=== PATIENT | male | born 1945 | race Caucasian/White ===

== ENCOUNTER → 2016-10-31 | Outpatient (CLI) | payer OTHER | LOC: BHFA 09:00 | PROVIDERS: ATTEND Internal Medicine Interventional Cardiology | DX: Z01.810 Encounter for preprocedural cardiovascular examination (principal); R94.31 Abnormal electrocardiogram [ECG] [EKG] | CPT/HCPCS: 78452; 93017; A9500; J2785 ==

== ENCOUNTER → 2017-11-20 | Outpatient (CLI) | payer OTHER | LOC: FIMAGING 07:48 | PROVIDERS: ATTEND Orthopaedic Surgery | DX: M16.11 Unilateral primary osteoarthritis, right hip (principal) ==

== ENCOUNTER 2017-11-30 06:10 | Inpatient (IN) | payer OTHER ==
[~2017-11-30 06:10] MED LIST: POVIDONE-IODINE 20 ML in SODIUM CL IRRIG SOLUTION 500 ML IRR ONE; ROPIVACAINE 0.2% 80 MG, EPINEPHrine 0.2 MG, KETOROLAC TROMETHAMINE 30 MG in SYRINGE 0 ML IU ONE; TRANEXAMIC ACID 1,000 MG in NS (SYRINGE) 50 ML IV ONE; ceFAZolin 3 GM in D5W 100 ML IV ONE
[2017-11-30] MEDS ORDERED: ACETAMINOPHEN 325 MG TAB PO ONE (06:21)
[2017-11-30] MEDS ORDERED: FAMOTIDINE 20 MG TAB PO ONE (06:21)
[2017-11-30] MEDS ORDERED: DEXAMETHASONE 4 MG/ML VIAL IVP ONE (06:21)
[2017-11-30] MEDS ORDERED: LR 1,000 ML IV ONE (06:22)
[2017-11-30] MEDS ORDERED: BUPIVACAINE/EPI 0.5% 30 ML SDV ONE (07:42)
[2017-11-30] MEDS ORDERED: BACITRACIN 50,000 UNITS/10 ML SYR IRR ONE (07:43)
[2017-11-30] MEDS ORDERED: POLYMYXIN B SULFATE 500,000 UNIT/10 ML SYR IRR ONE (07:43)
[2017-11-30] MEDS ORDERED: MIDAZOLAM 2 MG/2 ML VIAL IVP ONE (08:05)
--- NOTE | 2017-11-30 08:05 | PDANEPAE ---
ANE History of Present Illness here for ROXANNE ANE Past Medical History - Cardiovascular History Hx Hypertension: No Hx Arrhythmias: No Hx Chest Pain: No Hx Coronary Artery / Peripheral Vascular Disease: No Hx CHF / Valvular Disease: No Hx Palpitations: No Cardiovascular History Comment: ABNORMAL EKG IN PAST - Pulmonary History Hx COPD: No Hx Asthma/Reactive Airway Disease: No Hx Recent Upper Respiratory Infection: No Hx Oxygen in Use at Home: No Hx Sleep Apnea: No Sleep Apnea Screening Result - Last Documented: Positive Pulmonary History Comment: POS MADIE - NO CPAP - Neurologic History Hx Cerebrovascular Accident: No Hx Seizures: No Hx Dementia: No Neurologic History Comment: OCCAS MIGRAINES - Endocrine History Hx Diabetes: Yes Hypothyroid: No Hyperthyroid: No Endocrine History Comment: PREDIAB - METFORMIN - Renal History Hx Renal Disorders: Yes Renal History Comment: KIDNEY STONES IN PAST SEVERAL TIMES - Liver History Hx Hepatic Disorders: No - Neurological & Psychiatric Hx Hx Neurological and Psychiatric Disorders: No - Cancer History Hx Cancer: No - Congenital Disorder History Hx Congenital Disorders: No - GI History GERD: no Hx Gastrointestinal Disorders: Yes Gastrointestinal History Comment: INDIGESTION - Other Health History Other Health History: NEG - Chronic Pain History Chronic Pain: Yes (BACK PAIN, HIPS) - Surgical History Prior Surgeries: SPINAL FUSION LUMBAR. NECK DISC SURGERY. SINUS SURG. CATARACTS. CARPAL TUNNEL R. KIDNEY STONES - MULTI. TONSILLECTOMY ANE Review of Systems Review of systems is: negative Review of Systems: - Exercise capacity Exercise capacity: >=4 METS METS (RN): 4 METS ANE Patient History - Allergies Allergies/Adverse Reactions: No Known Allergies Allergy (Unverified 11/02/17 11:14) - Home Medications Home medications: home medication list seen and reviewed Home Medications: Acetaminophen [Tylenol 325mg (*)] 325 mg PO Q6 PRN 11/02/17 [Last Taken 11/29/17 ] Atorvastatin Calcium [Lipitor 20 mg (*)] 20 mg PO HS 11/02/17 [Last Taken ] Cholecalciferol Vit D3 [Vitamin D3 2000 units tab (OTC)] 4,000 units PO DAILY [Last Taken 11/23/17] Dutasteride [Avodart 0.5 MG (*)] 0.5 mg PO HS 11/02/17 [Last Taken 11/28/17] Gabapentin [Neurontin 300 MG (*)] 300 mg PO TID 11/02/17 [Last Taken 11/28/17] Herbals/Supplements -Info Only 1 ea PO DAILY 11/02/17 [Last Taken 11/23/17] Latanoprost 0.005% [Xalatan 0.005% (*)] 1 drops EACHEYE HS 11/02/17 [Last Taken 11/30/17] Omeprazole [Prilosec 20 mg] 40 mg PO Q2D 11/02/17 [Last Taken 11/28/17] Tamsulosin HCl [Flomax 0.4 MG (*)] 0.4 mg PO HS 11/02/17 [Last Taken 11/28/17] Timolol 0.5% [TIMOPTIC 0.5% (*)] 1 drops EACHEYE BID 11/02/17 [Last Taken ] metFORMIN HCL [Glucophage 850 mg (*)] 850 mg PO BIDMEAL 11/02/17 [Last Taken ] [place] 3/Dha/Epa/Other Om3/D3 BID 11/30/17 [Last Taken 11/28/17] - NPO status NPO Status: no food or drink >8 hours NPO Since - Liquids (Date): 11/29/17 NPO Since - Liquids (Time): 19:30 NPO Since - Solids (Date): 11/29/17 NPO Since - Solids (Time): 19:30 - Smoking Hx Smoking Status: Former smoker - Family Anes Hx Family Hx Anesthesia Complications: NEG ANE Labs/Vital Signs - Vital Signs Vital Signs: reviewed preoperatively; see RN documention for details Blood Pressure: 150/83 Heart Rate: 73 Respiratory Rate: 16 O2 Sat (%): 93 Height: 177.8 cm Weight: 117.934 kg ANE Physical Exam - Airway Neck exam: FROM Mallampati Score: Class 1 - Pulmonary Pulmonary: no respiratory distress - Cardiovascular Cardiovascular: regular rate and rhythym - ASA Status ASA Status: II, III ANE Anesthesia Plan Anesthesia Plan: general endotracheal anesthesia
[2017-11-30] MEDS ORDERED: MIDAZOLAM 2 MG/2 ML VIAL ONE (08:09)
[2017-11-30] MEDS ORDERED: fentaNYL 100 MCG/2 ML INJ ONE ×2 (08:09→12:10)
[2017-11-30] MEDS ORDERED: PROPOFOL/EMULSION 500 MG/50 ML BOTTLE IV ONE (08:14)
--- NOTE | 2017-11-30 08:16 | PDHPUP ---
History & Physical Update H&P update statement: This history and physical update is based on an assessment of the patient which was completed after admission or registration (within 24 hours), but prior to the surgery/procedure. H&P update: H&P reviewed & patient examined, no change in patient's condition since H&P completed
[2017-11-30] MEDS ORDERED: HYDROmorphONE/DILAUDID 2 MG/ML INJ ONE (08:59)
[2017-11-30] MEDS ORDERED: LABETALOL HCL 5 MG/ML 20 ML MDV IVP PRN (09:52)
[2017-11-30] MEDS ORDERED: PROMETHAZINE HCL 25 MG/ML INJ IVP PRN ×2 (09:52→12:09)
[2017-11-30] MEDS ORDERED: LR 500 ML IV PRN (09:52)
[2017-11-30] MEDS ORDERED: DEXAMETHASONE 4 MG/ML VIAL IVP PRN (09:52)
[2017-11-30] MEDS ORDERED: ONDANSETRON 4 MG/2 ML VIAL IVP PRN ×2 (09:52→12:09)
[2017-11-30] MEDS ORDERED: ALBUTEROL 3 ML DEYVIAL IH PRN (09:52)
[2017-11-30] MEDS ORDERED: NALOXONE HCL 0.4 MG/ML INJ IVP PRN (09:52)
[2017-11-30] MEDS ORDERED: SUGAMMADEX SODIUM 200 MG/2 ML VIAL IVP ONE ×2 (11:26→11:43)
[2017-11-30] MEDS ORDERED: diphenhydrAMINE 25 MG CAP PO PRN (12:09)
[2017-11-30] MEDS ORDERED: MAGNESIUM HYDROXIDE 30 ML UDCUP PO PRN (12:09)
[2017-11-30] MEDS ORDERED: METOCLOPRAMIDE 10 MG/2 ML VIAL IVP PRN (12:09)
[2017-11-30] MEDS ORDERED: DIPHENOXYLATE/ATROPINE LOMOTIL 1 TAB PO PRN (12:09)
[2017-11-30] MEDS ORDERED: LACTULOSE 20 GM/30 ML UDCUP PO PRN (12:09)
[2017-11-30] MEDS ORDERED: PROMETHAZINE HCL 25 MG SUPPR PR PRN (12:09)
[2017-11-30] MEDS ORDERED: BISACODYL 10 MG SUPP PR PRN (12:09)
[2017-11-30] MEDS ORDERED: ONDANSETRON DISINTEGRATING 4 MG TAB PO PRN (12:09)
[2017-11-30] MEDS ORDERED: TEMAZEPAM 15 MG CAP PO PRN (12:09)
[2017-11-30] MEDS ORDERED: HYDROmorphONE/DILAUDID 1 MG/ML INJ ONE (12:10)
[2017-11-30] MEDS: HYDROmorphONE/DILAUDID 1 MG/ML INJ IVP PRN ×3 (12:10→12:36)
[2017-11-30] MEDS: fentaNYL 100 MCG/2 ML INJ IVP PRN ×2 (12:10→12:21)
--- NOTE | 2017-11-30 12:16 | POSTOPPROG ---
Post Op Note Date of Operation: 11/30/17 Surgeon: Salas Ervin Support Staff: Noel Kat Anesthesia: GET(General Endotracheal) Pre-op Diagnosis: Right hip OA Post-op Diagnosis: same Procedure: Right posterior ROXANNE with Luis Inf/Abcess present in the surg proc area at time of surgery?: No EBL: 100-500 Complications: none Drains: Hemovac
[2017-11-30] MEDS ORDERED: LR 1,000 ML IV SCH (12:30)
--- NOTE | 2017-11-30 12:38 | POSTANESTH ---
Post Anesthetic Evaluation Cardiovascular Status: Normal, Stable Respiratory Status: Normal, Stable Level of Consciousness/Mental Status: Can Participate in Eval Pain Control: Adequate, Prn Tx Ordered Nausea/Vomiting Control: Adequate, Prn Tx Ordered Complications Possibly Related to Anesthesia: None Noted
[2017-11-30] MEDS: CYCLOBENZAPRINE 10 MG TAB PO PRN (13:20)
[2017-11-30] MEDS: oxyCODONE IR 5 MG TAB PO PRN ×2 (13:20→16:18)
[2017-11-30] MEDS: POLYETHYLENE GLYCOL 3350 17 GM PKT PO PRN (13:20)
[2017-11-30] MEDS: ceFAZolin 2 GM/SWFI 2 GM/20 ML SYR IVP SCH ×2 (13:22→23:04)
[2017-11-30] MEDS ORDERED: ceFAZolin 2 GM/DEXTROSE 100 ML IV SCH (14:00)
[2017-11-30] MEDS: GABAPENTIN 300 MG CAP PO SCH ×2 (14:14→23:03)
[2017-11-30] MEDS: ACETAMINOPHEN 325 MG TAB PO SCH ×3 (14:14→23:03)
[2017-11-30] MEDS ORDERED: GABAPENTIN 300 MG CAP PO SCH (16:00)
[2017-11-30] MEDS: metFORMIN HCL 850 MG TAB PO SCH (17:28)
[2017-11-30] MEDS ORDERED: ACETAMINOPHEN 325 MG TAB PO SCH (18:00)
[2017-11-30] MEDS: TIMOLOL 0.25% 5 ML OPHT.BTL EACHEYE SCH (20:24)
[2017-11-30] MEDS: SENNOSIDES/DOCUSATE SODIUM TAB PO SCH (20:25)
[2017-11-30] MEDS: FAMOTIDINE 20 MG TAB PO SCH (20:25)
[2017-11-30] MEDS ORDERED: ATORVASTATIN CALCIUM 20 MG TAB PO SCH (21:00)
[2017-11-30] MEDS ORDERED: LATANOPROST 0.005% 2.5 ML OPHT DROPS EACHEYE SCH (21:00)
[2017-11-30] MEDS ORDERED: TIMOLOL 0.5% 15 ML OPHT.BTL EACHEYE SCH (21:00)
[2017-11-30] MEDS ORDERED: TAMSULOSIN HCL 0.4 MG CAP PO SCH (21:00)
[2017-11-30] MEDS ORDERED: DUTASTERIDE 0.5 MG CAP PO SCH (21:00)
--- NOTE | 2017-11-30 23:16 | GOP ---
[f rep st] OPERATIVE REPORT DATE OF OPERATION: 11/30/2017 SURGEON: Salas Ervin MD NECK BAND OPERATOR: Александр Kat, CSFA, LSA. Lodging Manager was required due to the complexity of the case and the patient's condition for positioning, prepping, draping, retraction and closure. ANESTHESIA: General. PREOPERATIVE DIAGNOSIS: Right hip osteoarthritis. POSTOPERATIVE DIAGNOSIS: Right hip osteoarthritis. PROCEDURE PERFORMED: Right total hip replacement, posterior approach, with Luis robotic guidance. The case was complicated due to the patient's history of obesity. Extra staff, surgical instruments, and time were required for the patient; patient's transfer , positioning, draping, and surgical procedure itself. FINDINGS: SPECIMENS: None. ESTIMATED BLOOD LOSS: 300 cc. INDICATIONS: Hip osteoarthritis. After discussion of all available approaches , the patient elected a Luis robotic-assisted hip replacement through a posterior approach. The patient verbalized understanding of the risks and benefits of the procedure and signed informed consent prior to the procedure. DESCRIPTION OF PROCEDURE: The patient was seen in the holding area. Operative site was signed. Patient was then taken to the operating room. After smooth induction of general anesthesia, he was placed in the lateral decubitus position with the affected hip facing up with pegboard and axillary roll. The affected hip was prepped, draped in usual sterile fashion. Operative site was confirmed by signature. Operative time-out performed. Allergies were reviewed and antibiotics and TXA administered. Through a percutaneous approach over the iliac crest, 3 pins were placed in the ilium between the inner and outer tables. Pelvis array was attached and registered. Longitudinal incision was made centered over the posterior third of the greater trochanter. This was carried through the subcutaneous tissue to identify the fascia emma which was incised in line with the incision and the gluteus keith was bluntly split. The trochanteric bursa was taken down using Bovie. The short external rotators were put on stretch and the short external rotators and trapezoidal capsulotomy were taken in layers from their insertion on the femur and tagged with #2 Ethibond and FiberWire sutures. The quadratus femoris was partially released. The hip was dislocated. The femoral array and checkpoint were attached to the greater trochanter and the femur was registered. With guidance of the Luis robot, the templated length neck cut was made. The head was excised. The acetabulum was exposed in standard fashion. The labrum was sharply excised. The ligamentum teres and acetabular fossa tissue were excised using Bovie. The transverse acetabular ligament was also partially excised. The pelvic checkpoint was attached to the acetabulum and was registered. Using [employer] robotic arm, sequential reaming performed based on templated positioning. The appropriate size implant was then impacted into place with the robotic arm to guide version, inclination, and seen to have an excellent secure fit. The hole cover was screwed into place. The cup was irrigated and dried and the liner was locked into place. Femur was then exposed in standard fashion. Excess soft tissue was removed from the piriformis fossa using the Bovie and excess neck cut was removed using the box osteotome, sequential broaching was performed up to the desired size broach which had good fit and fill. The trial neck and stem array were attached and the anteversion, length, and offset were calculated with the Luis system and seen to be as planned. The trial femoral components were then removed. The femoral broach was reinserted. The trial neck and head were attached. The hip was relocated and the combined version, length and offset were again calculated using the [employer] robot and again seen to be as planned. The hip was then taken through range of motion, seen to be stable with flexion, internal rotation, adduction, as well as extension and external rotation. The trial component was removed from the femur and the stem implant was impacted into place. The trunnion was cleaned and dried and the head was impacted onto the trunnion. The wound was copiously irrigated with sterile solution using the pulse lavage including the cup, and the hip was then relocated and once again taken through range of motion and seen to be stable in all the above motions. The array pins and screws and checkpoints were removed. The capsule and external rotators were repaired through 2 drill holes in the greater trochanter. Soft tissues were infiltrated with a cocktail of Marcaine, epinephrine, and Toradol. A drain was placed exiting distally from beneath the fascia emma. The wound was then closed with #2 PDS Quill suture in the fascia emma, 0 PDS Quill suture in the deep subcutaneous fat, and 3-0 Versalok suture in the dermis. Dermabond and Steri-Strips were applied to the hip as was a silver dressing. The hip was placed in an abduction pillow. Patient was safely awakened, extubated, taken to recovery room in stable condition. All critical portions of the procedure were performed by myself, Dr. Ervin. The operative note was created by myself and I was immediately available for emergency cross-coverage at all times. DRAINS: One Hemovac. COMPLICATIONS: None. IMPLANTS: 54 mm Tritanium hemispherical solid back [place] cup, 0 degree polyethylene insert, 36 mm Accolade-II 127-degree neck size 6 with a 36 mm +7.5 head. /[id number]/MODL MTDD
[2017-12-01] MEDS: CYCLOBENZAPRINE 10 MG TAB PO PRN (05:35)
[2017-12-01] MEDS: ACETAMINOPHEN 325 MG TAB PO SCH ×2 (05:35→12:53)
[2017-12-01] MEDS: FAMOTIDINE 20 MG TAB PO SCH (08:08)
[2017-12-01] MEDS: GABAPENTIN 300 MG CAP PO SCH (08:08)
[2017-12-01] MEDS: metFORMIN HCL 850 MG TAB PO SCH (08:08)
[2017-12-01] MEDS: SENNOSIDES/DOCUSATE SODIUM TAB PO SCH (08:08)
[2017-12-01] MEDS: POLYETHYLENE GLYCOL 3350 17 GM PKT PO PRN (08:09)
[2017-12-01] MEDS: oxyCODONE IR 5 MG TAB PO PRN (08:15)
[2017-12-01] MEDS: TIMOLOL 0.25% 5 ML OPHT.BTL EACHEYE SCH (08:17)
--- NOTE | 2017-12-01 08:50 | SOAPPROG ---
SOAP Progress Note Assessment/Plan: Assessment: Postoperative day 1 status post right posterior approach total hip arthroplasty with Luis robotic guidance Plan: Weight-bearing as tolerated with assistance, PT/OT Posterior hip precautions Incentive spirometry 10 times per hour Analgesics as needed Lovenox 40 mg daily for 30 days Disposition: Home with home health and PT when cleared by Physical therapy 12/01/17 08:46 Subjective: No acute events over night. Denies fevers chills nausea vomiting chest pain shortness of breath numbness or tingling. Pain and soreness with standing. Objective: Vital Signs Temp Pulse Resp BP Pulse Ox 36.5 C 86 16 124/75 H 95 12/01/17 08:00 12/01/17 08:00 12/01/17 08:00 12/01/17 08:00 12/01/17 08:00 Laboratory Results 12/01/17 04:20 11/30/17 12/01/17 12/02/17 05:59 05:59 05:59 Intake Total 2600 Output Total 640 Balance 1960 Alert and oriented x3 No acute distress Right hip incision clean dry intact no erythema, signs infection, small quarter- sized area of drainage at distal aspect of incision bandage borders intact Thigh and calf compartments soft compressible without pain Sensation intact to light touch from L4-S1 Motor intact EHL FHL tibialis anterior gastrocsoleus Palpable DP PT pulses - Time Spent With Patient Time Spent With Patient: 10 - Pending Discharge Pending Discharge Within 24 Hours: Yes Pending Discharge Date: 12/02/17 Pending Discharge Time: 11:00 ICD10 Worksheet Patient Problems: Problems Problem Status Onset Osteoarthritis of right hip Acute
[2017-12-01] MEDS ORDERED: ENOXAPARIN 40 MG/0.4 ML SYR SC SCH (09:00)
[2017-12-01] MEDS ORDERED: CHOLECALCIFEROL VIT D3 2,000 UNITS TAB/CAP PO SCH (09:00)
[2017-12-01 11:26] VITALS: BP 118/69; PULSE 84; RESP 15; TEMP 98.2; O2SAT 91
--- NOTE | 2017-12-01 11:45 | WOCRNPDOC ---
WOCRN Advanced Assessment Note - Skin Integrity Problem, Advanced Assess Gluteal Cleft Dressing Type: Open to Air Exudate Amount: None Exudate Characteristic(s): None Integumentary Issue Intervention: Lotion/Cream Applied (will have nursing apply clear zinc BID) Pat Wound Tissue: Blanching, Erythema, Intact Pat Wound Swelling: None Wound Bed Color: Red Wound Bed Constitution: Red/Export - Non Granular Tissue Site Measurement - Head-to-Toe Length X Width X Depth (cm): 3cmx0.1cmx0.1cm Skin Integrity Problem Comment: Narrow, linear partial-thickness tissue loss r/ t moisture, consistent w/ intertriginous dermatitis. Pat-wound skin is otherwise intact and blanching throughout. This superficial wound is r/t moisture, and would benefit from a barrier cream such as clear zinc. Will have nursing apply BID.
--- NOTE | 2017-12-01 12:08 | ASMTCMCOM ---
CM Note CM Note Notes: OT rec home, PT rec home/C. Pt set up w [facility] PT by colleen SIMS, [facility] Pt staying in [place] at [address] [place] [address]. CM to follow. Date Signed: 12/01/2017 12:07 PM Electronically Signed By:HOLLY Leary
--- NOTE | 2017-12-01 15:53 | ASMTCMCOM ---
CM Note CM Note Notes: Pt medically stable for d/c, called Dr. Ervin office to get [facility] PT order ALFONSO Degroot reports they already sent order to Galindo Gibbons at [place]. Date Signed: 12/01/2017 03:52 PM Electronically Signed By:HOLLY Leary
--- NOTE | 2017-12-01 15:56 | ASDISCHSUM ---
Discharge Information Plan Status:Home with Home Health Medically Cleared to Leave: Discharge Date:12/01/2017 03:06 PM D/C Disposition:Home Health Service ADT D/C Disposition:Home, Routine, Self-Care Projected Discharge Date:12/01/2017 11:00 AM Transportation at D/C:Family Discharge Delay Reason: Follow-Up Date:12/01/2017 11:00 AM Discharge Slot: Final Diagnosis: Placement Information Referral Type:*Home Health Care Services Referral ID:[id number] Provider Name:[facility] Address 1:[address] Address 2: City:[place] Selection Factors: State:[place] Patient Contact Information Contact Name:ARMINDA Relationship: Address:[address] [address] Work Phone: City:[place] Alternate Phone: [facility]/Zip Code:[place] [address] Email: Financial Information Financial Class:Medicare Primary Plan Desc:MEDICARE INPATIENT Primary Plan Number:[id number] Secondary Plan Desc:SOLO PPO POS HMO Secondary Plan Number:[id number] Assessment Information [facility] CM Progress Note CM Note CM Note Notes: OT rec home, PT rec home/[facility]. Pt set up w [facility] PT by colleen SIMS, referral sent in [facility]. Pt staying in [place] at [address] [place] [address]. CM to follow. Date Signed: 12/01/2017 12:07 PM Electronically Signed By:HOLLY Leary BC CM Progress Note CM Note CM Note Notes: Pt medically stable for d/c, called Dr. Ervin office to get [facility] PT order ALFONSO Degroot reports they already sent order to Galindo Gibbons at [place]. Date Signed: 12/01/2017 03:52 PM Electronically Signed By:HOLLY Leary Intervention Information
--- NOTE | 2017-12-05 18:51 | GDS ---
[f rep st] DISCHARGE SUMMARY ADMITTING DIAGNOSIS: Right hip osteoarthritis. DISCHARGE DIAGNOSIS: Right hip osteoarthritis. PROCEDURE PERFORMED: Right posterior approach total hip arthroplasty. HOSPITAL COURSE: Patient was admitted on the above date and underwent the above procedure without co mplication. He tolerated the procedure well. Pain was well controlled postoperatively. His he was given antibiotics for perioperative infection prophylaxis and Lovenox for DVT prophylaxis. He worked well with physical therapy and was deemed safe for discharge home on postoperative day 1 with [facility]. DISCHARGE INSTRUCTIONS: Follow up in 2 weeks for his first postoperative evaluation. Continue on Lo venox for 30 days. DISCHARGE DISPOSITION: Home. CONDITION UPON DISCHARGE: Stable. /[id number]/MODL
== END 2017-12-01 15:06 | disposition home or self-care (01) | DRG 470 ==
LOC: F3N 06:10
PROVIDERS: ADMIT Orthopaedic Surgery; ATTEND Orthopaedic Surgery
DX: M16.11 Unilateral primary osteoarthritis, right hip (principal); Z87.891 Personal history of nicotine dependence; E66.9 Obesity, unspecified; Z68.37 Body mass index [BMI] 37.0-37.9, adult
CPT/HCPCS: 97116-GP; 97161-GP; 97165-GO; G8978-GP-CJ; G8979-GP-CI; G8980-GP-CI; G8987-GO-CI; G8988-GO-CI; G8989-GO-CI; J0171; J0690; J1100; J1170; J1650; J1885; J2250; J2270; J2405; J2704; J2795; J3010

== ENCOUNTER 2017-12-06 09:15 | Emergency (ER) | payer OTHER ==
[2017-12-06] MEDS ORDERED: ONDANSETRON 4 MG/2 ML VIAL IVP ONE (09:49)
--- NOTE | 2017-12-06 09:55 | EDPHY ---
General - History Smoking Status: Former smoker Time Seen by Provider: 12/06/17 09:49 Narrative: 11:19 I examined this patient as requested by Julius Hobbs. The patient's ecchymosis and hematoma are consistent with routine postoperative course especially as he is anticoagulated. No evidence of infection. X-ray normal. Plan for ultrasound to r/o clot or other acute processes as above. I concur with Julius Hobbs's interpretation and plan. (Pete Hurley) CHIEF COMPLAINT: Right leg pain, swelling and bruising HISTORY OF PRESENT ILLNESS: Patient complains of right leg pain, swelling and bruising. Symptoms started 2 days ago. They changed significantly yesterday. He is postoperative day 6 from a right hip total arthroplasty. This is a posterior approach. This was performed by Dr. Ervin. He was doing well postoperatively until 2 days ago. He notes increasing swelling and bruising the posterior aspect of leg at time. He also had a twisting injury yesterday at home. He has had increasing pain to the point that it is now significant despite his oral pain medications. The swelling is markedly different than the left leg. He has no numbness or tingling. No difficulty moving the ankle. No systemic illness but does feel that the leg has been warm to the touch. He has no chest pain or shortness of breath. No other associated complaints or modifying factors. He has been taking his Lovenox as prescribed but not yet taken today. REVIEW OF SYSTEMS: Ten systems reviewed and are negative unless otherwise noted in the HPI PCP: In [place] SPECIALISTS: Orthopedist Dr. Ervin PAST MEDICAL HISTORY: Osteoarthritis, BPH, glaucoma, reflux, type 2 diabetic, dyslipidemia PAST SURGICAL HISTORY: Low back surgery 2 years ago. Right hip ROXANNE November 30 2017 SOCIAL HISTORY: Nonsmoker. Lives independently with his spouse in [place]. Currently visiting his son here in [place] for surgery FAMILY HISTORY: Noncontributory EXAMINATION General Appearance: Alert, no distress Head: normocephalic, atraumatic Eyes: Pupils equal and round, no conjunctival pallor or injection ENT, Mouth: Mucous membranes moist Neck: Normal inspection, supple, non-tender Respiratory: Lungs are clear to auscultation. No wheezing rhonchi or crackles Cardiovascular: Regular rate and rhythm. No murmur. Symmetric DP pulses 2+. Symmetric PT pulses 2+. Gastrointestinal: Obese Abdomen is soft and nontender Back: non-tender, no bony abnormalities Neurological: A&O, nonfocal, normal sensation to the dorsum of the feet and plantar surface of the feet. Normal proprioception of the right great toe. Skin: Warm and dry, no rash. Multiple areas of extensive ecchymosis to the posterior aspect of the thigh and popliteal. No erythema. The right hip incisions are clean, dry and intact. No surrounding cellulitis or abscess Extremities: Mild tenderness in the right surgical site of the hip. There is moderate tenderness of the calf, popliteal fossa and right thigh. No bony tenderness of the right foot or ankle. No bony tenderness of the right heel. Range not fully tested due to hip precautions Psychiatric: Mood and affect normal DIFFERENTIAL DIAGNOSES: Including but not limited to DVT, ecchymosis, edema, fracture, sprain, strain, hardware malfunction MDM: 9:50 a.m. Increasing pain, swelling and ecchymosis of the right leg, postoperative day 6. He has been on DVT prophylaxis with Lovenox twice daily dosing. No dosing yet today. I have ordered x-ray of the right hip and knee. I have ordered laboratory studies. Ultrasound of the right lower extremity ordered to rule out DVT. I have ordered pain medication by IV. No other associated complaints or modifying factors. 10:30 a.m. Laboratory studies unremarkable for postoperative state. X-rays have been performed. As read by me, there are no acute findings. I have reviewed these with Dr. Hurley as well. Ultrasound pending. 11:15 a.m. Patient re-evaluated. Resting comfortably. Pending ultrasound interpretation at this time. 11:30 a.m. Notified by radiologist Dr. Cortes. Calf veins are not visualized. Thigh and popliteal veins visualize reveal no acute DVT. I have discussed this with Dr. Hurley. 12:10 p.m. Patient re-evaluated. We discussed the negative findings. We discussed that there may be a clot in the calf veins, but given that he is on Lovenox this would be the therapy. We also discussed going home with pain medication. We discussed follow up with Dr. Ervin. I discussed this with him, he will come evaluate the patient in the emergency department prior to discharge home. 1:05 p.m. Patient has been evaluated in person by Dr. Ervin. He agrees with our management thus far. He agrees the patient stable for discharge home with outpatient follow-up as scheduled on Monday. He does recommend consideration of Lyrica fluoride lower extremity pain in addition to the Percocet. I will be happy to provide these prescriptions for the patient. The patient will be instructed to follow up accordingly or return sooner for any worsening symptoms. He has no chest pain or shortness of breath but he has had some mild hypoxemia occasionally. Given the patient's large body habitus and [place] I do feel this is related. I discussed this with Dr. Hurley and he is in agreement. He would like the patient to go home supplemental oxygen we are working this with Respiratory therapy. 2:15 p.m. He was ambulated in the halls, and his oxygen dropped to 86%. I have re- evaluated him. This does improve on room air with rest, but he still intermittently drops to 88% at rest as well. I discussed with Dr. Hurley we agreed to proceed with home oxygen. I do feel he is stable for discharge home as is Dr. Hurley and Dr. Ervin. We again discussed discharge instructions. We discussed ED precautions. We discussed the medications. I have answered all his questions and the questions of the family. He is discharged home stable condition. SUPERVISION: Patient was independently examined, but I discussed the case with my secondary supervising physician Dr. Hurley (Julius Hobbs) - Diagnostics Imaging Results: Imaging Impressions Extremity Venous Study 12/06/17 09:50 Impression: No evidence of deep vein thrombosis at the knee or above. The patient does have conspicuous calf edema. Results discussed with JABARI Mathis. Hip X-Ray 12/06/17 09:50 Impression: Stable anatomic alignment of the recent right hip arthroplasty. Portable Right Knee (5 Views, at 10:35 AM): Bone mineralization is preserved. There is a mild degree of medial femoral-tibial compartment narrowing. The patellofemoral joint space is anatomically-aligned. There are some small degenerative osteophytes present. Subcutaneous edema is noted. There is no fracture, dislocation, or suprapatellar joint effusion. Impression: Mild degenerative features, with no acute osseous abnormality. Knee X-Ray 12/06/17 09:50 Impression: Stable anatomic alignment of the recent right hip arthroplasty. Portable Right Knee (5 Views, at 10:35 AM): Bone mineralization is preserved. There is a mild degree of medial femoral-tibial compartment narrowing. The patellofemoral joint space is anatomically-aligned. There are some small degenerative osteophytes present. Subcutaneous edema is noted. There is no fracture, dislocation, or suprapatellar joint effusion. Impression: Mild degenerative features, with no acute osseous abnormality. - Objective Vital Signs: Initial Vital Signs Temperature (C) 97.9 F 12/06/17 09:15 Heart Rate 85 12/06/17 09:15 Respiratory Rate 18 12/06/17 09:15 Blood Pressure 137/78 H 12/06/17 09:15 O2 Sat (%) 94 12/06/17 09:15 O2 Delivery Mode Room Air O2 (L/minute) 2 Allergies/Adverse Reactions: No Known Allergies Allergy (Verified 12/06/17 09:17) Home Medications: Medication Instructions Recorded Atorvastatin Calcium [Lipitor 20 20 mg PO HS 11/02/17 mg (*)] Cholecalciferol Vit D3 [Vitamin D3 4,000 units PO DAILY 11/02/17 2000 units tab (OTC)] Dutasteride [Avodart 0.5 MG (*)] 0.5 mg PO HS 11/02/17 Gabapentin [Neurontin 300 MG (*)] 300 mg PO TID 11/02/17 Latanoprost 0.005% [Xalatan 0.005% 1 drops EACHEYE HS 11/02/17 (*)] Omeprazole [Prilosec 20 mg] 40 mg PO Q2D 11/02/17 Tamsulosin HCl [Flomax 0.4 MG (*)] 0.4 mg PO HS 11/02/17 metFORMIN HCL [Glucophage 850 mg 850 mg PO BIDMEAL 11/02/17 (*)] Timolol 0.25% [TIMOPTIC 0.25% (*)] 1 drops EACHEYE BID 11/30/17 Enoxaparin [Lovenox 40 MG (*)] 40 mg SC DAILY syr 12/01/17 Pregabalin [Lyrica 75mg (*)] 75 mg PO BID #14 cap 12/06/17 oxyCODONE HCL/ACETAMINOPHEN 1 each PO Q4-6PRN PRN #20 tablet 12/06/17 [Percocet 5-325 mg Tablet] Laboratory Results: Laboratory Results 12/06/17 10:06 12/06/17 10:06 12/06/17 12/06/17 12/06/17 10:06 10:06 10:06 WBC 12.69 10^3/uL H 10^3/uL (3.80-9.50) RBC 3.30 10^6/uL L 10^6/uL (4.40-6.38) Hgb 10.3 g/dL L g/dL (13.7-17.5) Hct 30.6 % L % (40.0-51.0) MCV 92.7 fL fL (81.5-99.8) MCH 31.2 pg pg (27.9-34.1) MCHC 33.7 g/dL g/dL (32.4-36.7) RDW 13.3 % % (11.5-15.2) Plt Count 357 10^3/uL 10^3/uL (150-400) MPV 9.6 fL fL (8.7-11.7) Neut % (Auto) Not Reported Lymph % (Auto) Not Reported [place] % (Auto) Not Reported Eos % (Auto) Not Reported Baso % (Auto) Not Reported Nucleat RBC Rel Count 0.5 % H % (0.0-0.2) Absolute Neuts (auto) Not Reported Absolute Lymphs (auto) Not Reported Absolute Monos (auto) Not Reported Absolute Eos (auto) Not Reported Absolute Basos (auto) Not Reported Absolute Nucleated RBC 0.06 10^3/uL H 10^3/uL (0-0.01) Immature Gran % Not Reported Seg Neutrophils % 70 % % Band Neutrophils % 2 % % Lymphocytes % 17 % % Monocytes % 7 % % Eosinophils % 2 % % Basophils % 1 % % Metamyelocytes % 1 % % Immature Gran # Not Reported Absolute Seg Neuts 8.88 10^/uL H 10^/uL (1.70-6.50) Absolute Band Neuts 0.25 10^3/uL 10^3/uL (0.00-0.70) Absolute Lymphocytes 2.16 10^3/uL 10^3/uL (1.00-3.00) Absolute Monocytes 0.89 10^3/uL H 10^3/uL (0.30-0.80) Absolute Eosinophils 0.25 10^3/uL 10^3/uL (0.03-0.40) Absolute Basophils 0.13 10^3/uL H 10^3/uL (0.02-0.10) Absolute Metamyelocyte 0.13 10^3/mL H 10^3/mL (0.00-0.00) Platelet Estimate ADEQUATE (ADEQ) Polychromasia 2+ H Smear Review By Pending PT 13.0 SEC SEC (12.0-15.0) INR 0.96 (0.83-1.16) APTT 27.9 SEC SEC (23.0-38.0) Sodium 138 mEq/L mEq/L (135-145) Potassium 4.0 mEq/L mEq/L (3.5-5.2) Chloride 103 mEq/L mEq/L (97-110) Carbon Dioxide 25 mEq/l mEq/l (22-31) Anion Gap 10 mEq/L mEq/L (8-16) BUN 16 mg/dL mg/dL (7-23) Creatinine 0.6 mg/dL L mg/dL (0.7-1.3) Estimated GFR > 60 Glucose 157 mg/dL H mg/dL (70-100) Calcium 9.4 mg/dL mg/dL (8.5-10.4) Creatine Kinase 489 IU/L H IU/L (0-224) CK-MB (CK-2) Fraction 0.71 ng/mL ng/mL (0.00-3.19) CK-MB (CK-2) % 0.1 % % (0.0-4.0) Creatine Kinase Interp NEGATIVE (NEGATIVE) Medications Given: Discontinued Medications Hydromorphone HCl (Dilaudid) 0.5 mg IVP EDNOW ONE Stop: 12/06/17 11:59 Last Admin: 12/06/17 12:03 Dose: Not Given Morphine Sulfate (Morphine) 6 mg IVP EDNOW ONE Stop: 12/06/17 09:50 Last Admin: 12/06/17 10:14 Dose: 6 mg Ondansetron HCl (Zofran) 4 mg IVP EDNOW ONE Stop: 12/06/17 09:50 Last Admin: 12/06/17 10:11 Dose: 4 mg Oxycodone/Acetaminophen (Percocet 5/325) 2 tab PO EDNOW ONE Stop: 12/06/17 12:21 Last Admin: 12/06/17 12:33 Dose: 2 tab Departure - Departure Disposition: Home, Routine, Self-Care Clinical Impression: Post-operative pain, Postoperative edema, Hypoxemia Condition: Good Instructions: Pain Management After Surgery (DC) Additional Instructions: 1. Follow up with the orthopedic surgeon as discussed 2. ED precautions as discussed Referrals: Salas Ervin MD [Medical Doctor] - As per Instructions Prescriptions: oxyCODONE HCL/ACETAMINOPHEN [Percocet 5-325 mg Tablet] 1 each PO Q4-6PRN PRN # 20 tablet PRN Reason: Pain, Breakthrough Pregabalin [Lyrica 75mg (*)] 75 mg PO BID #14 cap
[2017-12-06 10:18] LABS: PLATELET COUNT 357 10^3/uL (150-400)
[2017-12-06 10:27] LABS: CREATINE KINASE 489 IU/L (0-224)
[2017-12-06 10:36] LABS: INR 0.96 (0.83-1.16)
[2017-12-06] MEDS ORDERED: HYDROmorphONE/DILAUDID 1 MG/ML INJ IVP ONE (11:58)
[2017-12-06] MEDS ORDERED: OXYCODONE/APAP 5/325 TAB PO ONE (12:20)
[2017-12-06 13:14] VITALS: TEMP 98.1
[2017-12-06 15:56] VITALS: BP 125/88; PULSE 90; RESP 16; O2SAT 91
--- NOTE | 2017-12-11 18:50 | GCON ---
[f rep st] CONSULTATION DATE OF CONSULTATION: 12/06/2017 CHIEF COMPLAINT: Right leg pain, swelling, bruising. 1 week status post right total hip arthroplasty . HISTORY OF PRESENT ILLNESS: A 72-year-old male complains of right lower extremity pain, swelling, an d bruising; the symptoms of which started approximately 2 days ago and then worsened yesterday. He w as having some difficulty with ambulation and pain control even while in the hospital, but notes an i ncrease in swelling and bruising in the posterior lateral aspect of the right lower extremity. He di d state that he had a mild twisting injury at home yesterday but did not fall. He has been taking 2 Percocet 5/325 every 4 hours. He denies numbness or tingling. Denies weakness. Denies fevers or ch ills, and they have been taking objective oral temperatures. Denies chest pain or shortness of breat h. Has been taking Lovenox daily as prescribed. REVIEW OF SYSTEMS: 10-point review of systems otherwise negative. PAST MEDICAL HISTORY: As above. Borderline diabetes, BPH, glaucoma, hyperlipidemia, and GERD. EXAMINATION: GENERAL: He is alert, in no acute distress. He seems to be comfortable when not movin g and lying in bed. Awake, alert, and oriented x3. HEENT: Normocephalic, atraumatic. LUNGS: He h as nonlabored breathing. EXTREMITIES: Right lower extremity reveals clean, dry, intact incision com pared to his discharge date 5 days ago. There is tenderness to palpation even to light touch all thr oughout the right lower extremity even down toward the knee. He even has [id number] tenderness of the calf, but most of his pain is located to the upper thigh and buttock. He has minimal pain wi th log roll. Difficulty weightbearing and moving around in bed secondary to pain. There is no eryth bernice, however, his skin is warmer to touch compared to the contralateral side. He has intact sensatio n to light touch in L3 to S1, and motor intact to EHL, FHL, tibialis anterior, gastrocsoleus. X-rays and ultrasound were negative for fracture, dislocation, or DVT, however, the calf veins were n ot properly visualized. There were no thigh or popliteal DVTs, however. LABORATORY: Workup reveals a white blood cell count of 12.69 with a hemoglobin of 10.3. ASSESSMENT AND PLAN: 72-year-old male 6 days status post right posterior approach total hip arthropl asty with increasing pain, swelling, and bruising. Negative for deep vein thrombosis. I am not conc erned. Low suspicion for infection, given no findings of significant leukocytosis outside of what co uld be expected at 6 days postoperative. He is afebrile and has been at home as well. Recommend a c ourse of Lyrica to adjunct the Percocet. Recommend continued weightbearing as tolerated with physica l therapy. Emergency room physician, Dr. Hurley, recommends home O2 for mild desaturation while amb ulating. I will have him follow up with me as scheduled in approximately 1 week for his first postop erative visit. The patient was provided my home cellphone number to get in contact with me if anythi ng should change. He and his understand and agree with the treatment plan. Questions answered. /[id number]/MODL
== END 2017-12-06 15:53 | disposition home or self-care (01) ==
DX: G89.18 Other acute postprocedural pain (principal); R60.9 Edema, unspecified; R09.02 Hypoxemia; E11.9 Type 2 diabetes mellitus without complications; Z87.891 Personal history of nicotine dependence; Z79.84 Long term (current) use of oral hypoglycemic drugs
CPT/HCPCS: 73502; 73564; 93971; 96374; 96375; 99285; J2270; J2405